=== PATIENT | female | born 1975 | race Caucasian/White ===

== ENCOUNTER 2016-09-23 06:01 | Emergency (ER) | payer OTHER ==
[~2016-09-23] VITALS: Ht 162.6 cm; Wt 65.9 kg
[~2016-09-23 06:01] MED LIST: DEXAMETHASONE4 MG PO; NO HOME MEDICATIONS; NORCO 325 MG-51 TA1 PO; NORCO 325 MG-51 TAB PO; VALIUM 5MG T5 MG/TAB PO
[2016-09-23] MEDS ORDERED: VRAYLAR1.5 MG PO (06:51)
[2016-09-23] MEDS ORDERED: MINIPRESS2 MG PO (06:52)
[2016-09-23] MEDS ORDERED: ATIVAN1 M1 PO (06:52)
[2016-09-23 10:38] VITALS: BP 119/72
== END 2016-09-23 10:25 | disposition home or self-care (01) ==
LOC: ED 06:01
DX: R55 Syncope and collapse (principal); F50.89 Other specified eating disorder; R11.0 Nausea; R42 Dizziness and giddiness

== ENCOUNTER → 2017-05-09 | Outpatient (CLI) | payer SELFPAY ==
[~2017-05-09] MED LIST changes: +ATIVAN1 M1 PO; +MINIPRESS2 MG PO; +VRAYLAR1.5 MG PO
== END ==
LOC: LAB 08:59
DX: J02.9 Acute pharyngitis, unspecified (principal); R53.83 Other fatigue

== ENCOUNTER 2019-03-16 04:05 | Emergency (ER) | payer SELFPAY ==
[~2019-03-16] VITALS: Ht 10.2 cm; Wt 65.9 kg
[2019-03-16 08:15] VITALS: BP 154/95
== END 2019-03-16 08:20 | disposition home or self-care (01) ==
LOC: ED 04:05
DX: S80.01XA Contusion of right knee, initial encounter (principal); S00.83XA Contusion of other part of head, initial encounter; S63.501A Unspecified sprain of right wrist, initial encounter; F41.9 Anxiety disorder, unspecified; F32.9 Major depressive disorder, single episode, unspecified; Y04.0XXA Assault by unarmed brawl or fight, initial encounter

== ENCOUNTER → 2020-06-21 | Outpatient (CLI) | payer MEDICAID ==
[2020-06-21 17:32] LABS: CLUE CELLS PRESENT (Not Observd)
[2020-06-21 21:55] LABS: HEPATITIS C VIRUS ANTIBODY Negative (Negative)
[2020-06-22 01:47] LABS: HEPATITIS B SURFACE ANTIBODY 8.9 (())
[2020-06-23 02:06] LABS: SYPHILIS AB SCREEN w REFLEX Negative (Negative)
== END ==
LOC: LAB 11:47
PROVIDERS: Family Medicine
DX: Z11.3 Encounter for screening for infections with a predominantly sexual mode of transmission (principal)
CPT/HCPCS: Q0111

== ENCOUNTER → 2021-03-08 | Outpatient (CLI) | payer MEDICAID ==
[2021-03-08 11:39] LABS: CLUE CELLS NOT OBSERVED (Not Observd)
== END ==
LOC: LAB 11:03 → RAD 11:03
PROVIDERS: Nurse Practitioner Family
DX: N83.202 Unspecified ovarian cyst, left side (principal)
CPT/HCPCS: Q0111

== ENCOUNTER → 2021-03-30 | Outpatient (CLI) | payer MEDICAID | LOC: LAB 16:35 | DX: R30.9 Painful micturition, unspecified (principal) ==

== ENCOUNTER → 2021-06-04 | Outpatient (CLI) | payer MEDICAID ==
[2021-06-04 13:04] LABS: BASO # 0.03 K/mm3 (0.02-0.10); EOS # 0.32 K/mm3 (0.04-0.40); EOS % 3.8 % (1.0-5.0); HEMATOCRIT 38.9 % (37.0-47.0); HEMOGLOBIN 12.1 g/dL (12.5-16.0); MEAN CELL VOLUME 84 fl (78-100); MEAN CORPUSCULAR HEMOGLOBIN 26 pg (27-31); MEAN CORPUSCULAR HGB CONC 31 g/dL (33-37); MEAN PLATELET VOLUME 9.1 fl (7.4-10.4); MONO # 0.44 K/mm3 (0.20-0.80); NEU # 5.54 K/mm3 (1.40-6.50); PLATELET COUNT 335 K/mm3 (130-400); RED BLOOD COUNT 4.63 M/mm3 (4.10-5.30); RED CELL DISTRIBUTION WIDTH 14.9 % (11.5-14.5); WHITE BLOOD COUNT 8.4 K/mm3 (4.8-10.8)
[2021-06-04 13:12] LABS: ALBUMIN 4.1 g/dL (3.5-5.0); POTASSIUM 4.5 mmol/L (3.5-5.1)
[2021-06-04 13:13] LABS: CALCIUM 9.2 mg/dL (8.3-10.5)
[2021-06-04 13:14] LABS: TOTAL PROTEIN 7.6 g/dL (6.4-8.3)
[2021-06-04 13:16] LABS: TOTAL BILIRUBIN 0.2 mg/dL (0.2-1.2)
[2021-06-04 13:26] LABS: D-DIMER 0.33 mg/L FEU (0.15-0.50)
== END ==
LOC: LAB 11:52
PROVIDERS: Nurse Practitioner
DX: R06.00 Dyspnea, unspecified (principal)

== ENCOUNTER → 2021-06-06 | Outpatient (CLI) | payer MEDICAID | LOC: LAB 09:08 | DX: R06.00 Dyspnea, unspecified (principal); Z20.822 Contact with and (suspected) exposure to COVID-19 ==

== ENCOUNTER → 2021-06-08 | Outpatient (CLI) | payer MEDICAID | LOC: LAB 17:52 | DX: U07.1 COVID-19 (principal) ==

== ENCOUNTER 2021-11-16 09:56 | Outpatient (RCR) | payer MEDICAID | END 2021-11-20 | disposition home or self-care (01) | LOC: PT | DX: S29.012D Strain of muscle and tendon of back wall of thorax, subsequent encounter (principal); X58.XXXD Exposure to other specified factors, subsequent encounter ==

== ENCOUNTER 2021-11-23 07:57 | Outpatient (RCR) | payer MEDICAID | END 2021-12-21 | disposition still patient (30) | LOC: PT | DX: S29.012D Strain of muscle and tendon of back wall of thorax, subsequent encounter (principal); X58.XXXD Exposure to other specified factors, subsequent encounter ==

== ENCOUNTER 2021-12-22 07:52 | Outpatient (RCR) | payer MEDICAID | END 2022-01-17 15:32 | disposition home or self-care (01) | LOC: PT 07:52 | DX: S29.012D Strain of muscle and tendon of back wall of thorax, subsequent encounter (principal); X58.XXXD Exposure to other specified factors, subsequent encounter ==

== ENCOUNTER → 2022-06-05 | Outpatient (CLI) | payer MEDICAID | LOC: MAMMO 15:27 | DX: Z12.31 Encounter for screening mammogram for malignant neoplasm of breast (principal); N92.1 Excessive and frequent menstruation with irregular cycle ==

== ENCOUNTER → 2023-07-18 | Outpatient (CLI) | payer MEDICAID ==
[~2023-07-18] MED LIST changes: +COZAAR100 MG PO; +DOXYCYCLINE MO100 M3 PO; +FLUTICASON0.05 MG/Ac NS; +MYRBETRIQ25 MG PO; +PREDNISONE20 M1 PO
[2023-07-18 12:08] LABS: BASO # 0.04 K/mm3 (0.02-0.10); EOS # 0.36 K/mm3 (0.04-0.40); EOS % 2.9 % (1.0-5.0); LYMPH# 3.46 K/mm3 (1.50-4.00); MEAN CELL VOLUME 84 fl (78-100); MEAN CORPUSCULAR HEMOGLOBIN 26 pg (27-31); MEAN CORPUSCULAR HGB CONC 31 g/dL (33-37); MONO # 0.71 K/mm3 (0.20-0.80); NEU # 7.66 K/mm3 (1.40-6.50); PLATELET COUNT 361 K/mm3 (130-400); RED BLOOD COUNT 5.71 M/mm3 (4.10-5.30); RED CELL DISTRIBUTION WIDTH 16.9 % (11.5-14.5); WHITE BLOOD COUNT 12.3 K/mm3 (4.8-10.8)
[2023-07-18 12:15] LABS: ALBUMIN 4.1 g/dL (3.5-5.0)
[2023-07-18 12:17] LABS: CALCIUM 10.3 mg/dL (8.3-10.5)
[2023-07-18 12:18] LABS: TOTAL PROTEIN 7.3 g/dL (6.4-8.3)
[2023-07-18 12:20] LABS: TOTAL BILIRUBIN 0.4 mg/dL (0.2-1.2)
== END ==
LOC: LAB 11:40
PROVIDERS: Physician Assistant
DX: I10 Essential (primary) hypertension (principal); H46.9 Unspecified optic neuritis; R51.9 Headache, unspecified

== ENCOUNTER → 2023-12-05 | Outpatient (CLI) | payer SELFPAY | LOC: LAB 12:50 | DX: G35 Multiple sclerosis (principal) ==